=== PATIENT | male | born 1955 | race Caucasian/White ===

== ENCOUNTER 2024-05-28 13:00 | Emergency (ER) | payer MEDICARE, OTHER, SELFPAY ==
[2024-05-28 13:03] VITALS: BP 134/81
[2024-05-28 13:11] VITALS: BP 134/81
--- NOTE | 2024-05-28 13:41 | ED.CVA ---
ED Provider Triage
-
Patient seen by provider in Triage?: Seen in Triage
Attestation: A medical screening examination has been initiated by a qualified medical provider. Based on the assessment performed at this time, it has been determined that an emergent medical condition may exist and the patient has been informed
that further medical evaluation and possible additional diagnostic testing may be needed.
HPI:
GENERAL: Alert , in no apparent distress
EYE: No visual abnormalities.
NECK: Trachea midline
ENT: No visible abnormalities.
LUNGS: No acute respiratory distress
NEUROLOGICAL: Alert and oriented
SKIN: Skin intact. No visible changes.
MUSCULOSKELETAL: Moving extremities normally
PSYCH: Normal and appropriate interaction.
This is a medical evaluation conducted in person to initiate diagnostic evaluation and provide initial therapeutics. Please see further documentation by the treating clinician.
History of Present Illness
General
Chief Complaint: CVA/TIA Symptoms
Time Seen by Provider: 05/28/24 13:57
Onset of Stroke Symptoms
Onset of symptoms known: No
Time pt last seen normal is known: No
History of Present Illness
History of Present Illness:
68-year-old male presents from '[facility]' with staff, this is apparently a behavioral health group facility under the [facility], with concern for possible right facial droop. He was apparently doing a FaceTime consultation with his
therapist today when she felt his face was drooping. Patient states this has been occurring intermittently for the past several weeks if not greater than 1 month. He denies any rhyme or reason to the symptoms. Denies any extremity weakness or
numbness. He does see primary care routinely has a product of being in a group facility requiring frequent medical checkups
Past History
Past History
ED Past Medical History: Asthma, HTN, Hypothyroidism, Psychiatric (Schizophrenia, depression) and Other (History of Urinary retention)
ED Past Surgical History: Other
Social History
Tobacco: Smoker (cigars)
Alcohol: None
Drug: None
Personal: Single
Living: other (detention for mental health)
Employment: Disabled
Review of Systems
Review of Systems
Allergies reviewed?: Yes
All Other Systems: ROS reviewed and negative except as documented in HPI and ROS
Phy Exam
Physical Exam
Physical Exam:
GEN: Well appearing, NAD, WDWN
HEENT: Oral mucosa moist, no scleral icterus, no nasal congestion
Cardiac: Regular rate
Lung: No respiratory distress, no tachypnea
MSK: No gross deformity or injuries
Skin: Good color, no pallor or jaundice, no rashes
Neuro: AO x3; CN II-XII grossly intact. BUE strength 5/5 in all martin, sensation intact and symmetric. BLE strength 5/5 in all martin, sensation intact and symmetric
Psych: Calm, cooperative
Course
Orders/Labs/Results
Orders:
Orders
05/28/24 13:08
CT Head W/o Iv Contrast Urgent
Comment:
Reason For Exam: intermittent facial drooping
Vital Signs
Initial and Last Documented VS:
Initial Vital Signs
Temp Pulse Resp BP Pulse Ox
97.7 F 82 20 134/81 95
05/28/24 13:03 05/28/24 13:03 05/28/24 13:03 05/28/24 13:03 05/28/24 13:03
Last Documented Vital Signs
Temp Pulse Resp BP Pulse Ox
97.7 F 80 20 134/81 95
05/28/24 13:11 05/28/24 13:11 05/28/24 13:11 05/28/24 13:11 05/28/24 13:11
MDM/Problems Addressed
MDM/Problems Addressed:
Patient has no focal neurologic deficits at this time, highly doubt CVA given the waxing waning nature over the course of 1 month with no additional symptoms. CT of the head obtained shows no evidence for subacute infarct. Discharged in stable
condition back to his facility under the care of staff, staff does indicate that the patient appears to be at his baseline at this time
*Critical Care Note
Total Time (30-74mins, 75-104mins- exclusive of procedures): Not Applicable
ED Attending Note
-
Portions of this chart may have been created with voice recognition software.� Occasional wrong word or��sound alike� substitutions may have occurred due to the inherent limitations of voice recognition software.
Discharge Plan
Departure
Patient Disposition: Home (Routine Discharge)
Date of Disposition: 05/28/24
Time of Disposition: 14:01
Patient with high blood pressure during this ER visit?: No
Discharge Problem:
Facial droop
Prescriptions:
No Action
ibuprofen 600 MG tablet
600 mg PO TID PRN (Reason: pain) Qty: 30 0RF
finasteride [Proscar] 5 mg Tablet
5 mg PO DAILY
famotidine [Pepcid] 40 mg Tablet
40 mg PO BID
escitalopram oxalate [Lexapro] 10 mg Tablet
10 mg PO DAILY
Synthroid 75 mcg
75 tab PO DAILY
Senna Plus (senna-docusate)
50 mg PO DAILY
Sharif-600 With Vitamin D
1 tab PO DAILY
gabapentin 300 mg
300 tab PO BID
tamsulosin [Flomax] 0.4 mg Capsule
0.4 mg PO BID
oxybutynin 5 mg
5 tab PO BID
clonazepam [Klonopin] 2 mg Tablet
2 mg PO BID
olanzapine [Zyprexa] 5 mg Tablet
5 mg PO HS
Paxlovid 300 mg (150 mg x 2)-100 mg tablets,dose pack
See Rx Instructions .ROUTE .COMPLEX Qty: 30 0RF
Rx Instructions:
take TWO 150 mg tablets of nirmatrelvir with ONE 100 mg tablet of ritonavir twice daily for 3 days
Activity Restrictions/Additional Instructions:
There is no evidence of stroke on CAT scan
There is no evidence of active facial drooping on my evaluation or any other neurologic deficits
Interventions
Interventions:
*Risk Screen - Suicide Last Done: 05/28/24 13:03
*Neglect/Abuse Screening Last Done: 05/28/24 13:03
*ED COVID-19 Vaccine History Last Done: 05/28/24 13:03
Discharge Date and Time
Print Language: DANISH
== END 2024-05-28 14:59 | disposition home or self-care (01) ==
LOC: EMR 13:00
PROVIDERS: EMERGENCY PHYSICIAN Emergency Medicine; FAMILY PHYSICIAN Nurse Practitioner Family
DX: R29.810 Facial weakness (principal); J45.909 Unspecified asthma, uncomplicated; I10 Essential (primary) hypertension; E03.9 Hypothyroidism, unspecified; F20.9 Schizophrenia, unspecified; F32.A Depression, unspecified; F17.290 Nicotine dependence, other tobacco product, uncomplicated
CPT/HCPCS: 99284; 70450